=== PATIENT | male | born 1970 | race Caucasian/White ===

== ENCOUNTER 2022-10-26 16:42 | Emergency (ER) | payer SELFPAY ==
[~2022-10-26] VITALS: Ht 180.3 cm; Wt 77.1 kg
[2022-10-26] MEDS ORDERED: GOLYTELY SOLU4000 M1 PO (17:06)
== END 2022-10-26 17:17 | disposition home or self-care (01) ==
LOC: ER 16:49
DX: K59.00 Constipation, unspecified (principal)
CPT/HCPCS: 99282